=== PATIENT | female | born 1945 | race Caucasian/White ===

== ENCOUNTER → 2017-11-03 | Outpatient (CLI) | payer OTHER ==
[~2017-11-03] MED LIST: ASPIR 8181 MG; CENTRUM SILVER1 EAC4; CINNAMON500 MG PO; DULCOLAX5 MG PO; FISH OIL 1,001000 M2 PO; GABAPENTIN 100100 MG PO; HYDROCHLOROTHIA25 M2 PO; LISINOPRIL20 MG PO; MAGNESIUM100 MG PO; MIRALAX17 GM PO; PRAVACHOL20 MG PO; PROBIOTIC1 EAC1 PO; VIMOVO 500-201 EACH PO; VITAMIN D400 UNIT PO; ZOHYDRO ER30 M1 PO
== END ==
LOC: RAD 13:16
DX: M54.6 Pain in thoracic spine (principal)

== ENCOUNTER → 2020-06-08 | Outpatient (CLI) | payer OTHER | LOC: LAB 11:53 | PROVIDERS: ATTEND Anesthesiology | DX: Z01.812 Encounter for preprocedural laboratory examination (principal); Z20.822 Contact with and (suspected) exposure to COVID-19 ==